=== PATIENT | male | born 1980 | race Caucasian/White ===

== ENCOUNTER 2020-11-30 15:39 | Emergency (ER) | payer MEDICARE, BC, SELFPAY ==
[2020-11-30 15:54] VITALS: BP 151/80; PULSE 92; RESP 20; TEMP 36.3; O2SAT 97
--- NOTE | 2020-11-30 16:02 | ED.MALEGU ---
HPI - Male Genitourinary General Chief complaint: Skin/Abscess/Foreign Body Stated complaint: INFECTION Time Seen by Provider: 11/30/20 16:10 Source: patient and RN notes reviewed Mode of arrival: ambulatory Limitations: no limitations History of Present Illness HPI Narrative: 40-year-old male with history of morbid obesity presents with concern for possible ingrown hair, burning, itchy rash in his groin, including his testicles and penis, yellow penile discharge. He denies any sexual activity, does not have any concern for STDs. He denies abdominal pain, back pain, fever, testicle swelling or pain. MD Complaint: penile discharge Related Data Home Medications Medication Instructions Recorded Confirmed citalopram [Celexa] mg 11/30/20 diazepam [Valium] 11/30/20 hydroxyzine HCl 11/30/20 lamotrigine [Lamictal] 11/30/20 vilazodone [Viibryd] mg 11/30/20 ziprasidone HCl [Geodon] 11/30/20 Allergies Allergy/AdvReac Type Severity Reaction Status Date / Time No Known Allergies Allergy Verified 11/30/20 15:55 Review of Systems Review of Systems: Narrative: CONSTITUTIONAL: Denies malaise, chills, sweats, or fever. CARDIOVASCULAR: Denies chest pain, palpitations, or edema. RESPIRATORY: Denies cough or dyspnea. GASTROINTESTINAL: Denies abdominal pain, nausea, vomiting, diarrhea GENITOURINARY: Denies frequency, urgency, dysuria or hematuria. Reports yellow penile discharge SKIN: Reports itchy, burning rash in the groin, testicles, penis. Reports painful possible ingrown hair in the groin MUSCULOSKELETAL: Denies back pain or myalgia. All systems reviewed & are unremarkable except as noted in HPI and below PMFSH Social History Social History Gender identity (if verbalized by the patient): Male Comments At time of signature, agree with nursing past medical, surgical, social and family history. There is no relevant family history pertinent to the presenting complaint Exam Narrative: Exam Narrative: GENERAL: Well-appearing, well-nourished, and in no acute distress. HEAD: Normocephalic. EYES: PERRLA, conjunctivae clear. NECK: Supple. No lymphadenopathy CHEST: Clear to auscultation. No respiratory distress. HEART: Regular rate and rhythm. ABDOMEN: Obese, normal active bowel sounds SKIN: Warm, dry. Area of erythema, induration, tenderness with central scab and purulent drainage noted to the left groin, no fluctuation approximately 2 cm x 3 cm. Excoriated erythematous rash generalized to the groin, scrotum, penis NEURO: Alert and oriented x3. PSYCH: Normal mood and affect : Male General Exam: Yes erythema (Excoriation) Penis: Yes erythematous Scrotum: erythematous (Excoriation, rash) bilateral Course Course Emergency Course: Patient is aware of diagnosis, understands and agrees to treatment plan. Anticipatory guidance given. Patient agrees to follow-up as directed and is aware of reasons to seek care at the emergency department. Portions of this record may have been created with voice recognition software Vital Signs Vital signs: Vital Signs Temperature 97.4 F L 11/30/20 15:54 Pulse Rate 92 11/30/20 15:54 Respiratory Rate 20 11/30/20 15:54 Blood Pressure 151/80 H 11/30/20 15:54 Pulse Oximetry 97 11/30/20 15:54 Temperature 97.4 F L 11/30/20 15:54 Pulse Rate 92 11/30/20 15:54 Respiratory Rate 20 11/30/20 15:54 Blood Pressure 151/80 H 11/30/20 15:54 Pulse Oximetry 97 11/30/20 15:54 Reviewed. MDM - Male Genitourinary MDM Narrative Medical decision making narrative: Exam findings show no acute concerns or changes; patient is non-toxic appearing and is in no distress. Patient is appropriate for outpatient treatment and follow-up. Critical Care Time Critical Care Time Critical Care Time: No Discharge Plan Discharge Clinical Impression: Skin yeast infection Abscess of skin or subcutaneous tissue Qualifiers: Site of cutaneous abscess: trunk Site of cutaneous abs
== END 2020-11-30 16:41 | disposition home or self-care (01) ==
PROVIDERS: Emergency Provider Nurse Practitioner
DX: B37.2 Candidiasis of skin and nail (principal); L02.214 Cutaneous abscess of groin
CPT/HCPCS: 87070; 87077; 87147; 87186; 87205; 99213; G0463

== ENCOUNTER → 2021-07-26 09:16 | Outpatient (CLI) | payer MEDICARE, BC, SELFPAY ==
--- NOTE | ~2021-07-26 | XR_ITS ---
EXAMINATION: XR abdomen/kub 1V INDICATION: Constipation, unspecified TECHNIQUE: Supine views of the abdomen were obtained on 2 radiographs. COMPARISON: None FINDINGS: A moderate volume of colonic stool is present. No dilated loops of bowel are present. There is mild osteoarthritis of the hips. IMPRESSION: 1. Moderate volume of colonic stool. Reviewed, dictated and finalized at location A.
== END ==
PROVIDERS: PCP Family Medicine; Visit Provider Nurse Practitioner Family
DX: K59.00 Constipation, unspecified (principal)
CPT/HCPCS: 74018

== ENCOUNTER 2023-03-26 12:15 | Outpatient (CLI) | payer MEDICARE, BC, SELFPAY ==
[2023-03-26 12:56] LABS: Basophils Absolute Auto 0.1 K/mm3 (0.0-0.1); Basophils Percent Auto 0.8 % (0.2-1.2); Eosinophils Absolute Auto 0.5 K/mm3 (0-0.3); Eosinophils Percent Auto 3.6 % (0-4.4); Hematocrit 47.6 % (42.0-52.0); Hemoglobin 15.2 g/dL (14.0-18.0); Immature Granulocyte Absolute 0.04 K/mm3 (0.00-0.031); Immature Granulocyte Percent A 0.3 % (0-0.5); Lymphocytes Absolute Auto 2.36 K/mm3 (0.9-3.2); Lymphocytes Percent Auto 17.1 % (18.3-44.2); Mean Corpuscular HGB Conc 31.9 g/dl (32-36); Mean Corpuscular Hemoglobin 29.5 pg (26-34); Mean Corpuscular Volume 92.2 fl (80-100); Mean Platelet Volume 9.2 fl (7.4-10.4); Monocytes Absolute Auto 1.1 K/mm3 (0.1-0.6); Monocytes Percent Auto 7.7 % (2.6-8.5); Neutrophils Absolute Auto 9.7 K/mm3 (1.3-6.7); Neutrophils Percent Auto 70.5 % (45.5-73.1); Platelet Count Result 288 k/mm3 (150-375); Red Blood Count 5.16 M/mm3 (4.6-6.20); Red Cell Distribution Width 13.4 % (11.5-14.5); White Blood Count 13.8 K/mm3 (4.5-10.0)
[2023-03-26 13:20] LABS: Alanine Aminotransferase 26 U/L (6-50); Albumin Level 4.7 g/dL (3.5-5.1); Alkaline Phosphatase 109 U/L (38-126); Anion Gap 10 mmol/L (8-16); Aspartate Amino Transferase 20 U/L (17-59); Bilirubin,Total 0.5 mg/dL (0.2-1.3); Blood Urea Nitrogen 21 mg/dL (9-20); Calcium 9.6 mg/dL (8.4-10.2); Carbon Dioxide 26 mmol/L (22-30); Chloride 103 mmol/L (98-107); Estimated Glomerular Filt Rate > 60; Glucose 135 mg/dL (65-110); Potassium 4.5 mmol/L (3.4-5.0); Sodium 139 mmol/L (137-145)
[2023-03-26 13:54] LABS: HIV 1/2 Ab P24 Ag Result Negative (Negative)
[2023-03-26 17:02] LABS: Hepatitis C Virus Antibody Negative (Negative)
[2023-03-28 09:56] LABS: HAV RESULT Negative (Negative)
[2023-03-28 16:49] LABS: NIL 0.01 IU/mL; Quantiferon TB Plus, 1T NEGATIVE (NEGATIVE)
== END 2023-03-26 12:16 | disposition home or self-care (01) ==
LOC: ANHLAB 12:26
PROVIDERS: PCP Family Medicine
DX: L40.0 Psoriasis vulgaris (principal); Z11.4 Encounter for screening for human immunodeficiency virus [HIV]; Z79.899 Other long term (current) drug therapy
CPT/HCPCS: 36415; 80053; 85025; 86480; 86703; 86709; 86803; G0432

== ENCOUNTER 2023-06-09 10:02 | Outpatient (CLI) | payer MEDICARE, BC, SELFPAY ==
[2023-06-09 10:36] LABS: Basophils Absolute Auto 0.2 K/mm3 (0.0-0.1); Basophils Percent Auto 1.3 % (0.2-1.2); Eosinophils Absolute Auto 0.7 K/mm3 (0-0.3); Eosinophils Percent Auto 5.5 % (0-4.4); Hematocrit 44.1 % (42.0-52.0); Hemoglobin 14.5 g/dL (14.0-18.0); Immature Granulocyte Absolute 0.05 K/mm3 (0.00-0.031); Immature Granulocyte Percent A 0.4 % (0-0.5); Lymphocytes Absolute Auto 3.77 K/mm3 (0.9-3.2); Lymphocytes Percent Auto 30.1 % (18.3-44.2); Mean Corpuscular HGB Conc 32.9 g/dl (32-36); Mean Corpuscular Hemoglobin 29.9 pg (26-34); Mean Corpuscular Volume 90.9 fl (80-100); Mean Platelet Volume 8.8 fl (7.4-10.4); Monocytes Percent Auto 7.9 % (2.6-8.5); Neutrophils Absolute Auto 6.9 K/mm3 (1.3-6.7); Neutrophils Percent Auto 54.8 % (45.5-73.1); Platelet Count Result 279 k/mm3 (150-375); Red Blood Count 4.85 M/mm3 (4.6-6.20); Red Cell Distribution Width 14.5 % (11.5-14.5); White Blood Count 12.5 K/mm3 (4.5-10.0)
== END 2023-06-09 10:03 | disposition home or self-care (01) ==
PROVIDERS: PCP Family Medicine; Visit Provider Nurse Practitioner Family
DX: B37.0 Candidal stomatitis (principal)
CPT/HCPCS: 36415; 85025

== ENCOUNTER 2023-07-02 08:58 | Outpatient (CLI) | payer MEDICARE, BC, SELFPAY ==
[2023-07-02 09:46] LABS: Basophils Absolute Auto 0.1 K/mm3 (0.0-0.1); Basophils Percent Auto 0.7 % (0.2-1.2); Eosinophils Absolute Auto 0.8 K/mm3 (0-0.3); Eosinophils Percent Auto 6.1 % (0-4.4); Hematocrit 44.3 % (42.0-52.0); Hemoglobin 14.3 g/dL (14.0-18.0); Immature Granulocyte Absolute 0.05 K/mm3 (0.00-0.031); Immature Granulocyte Percent A 0.4 % (0-0.5); Lymphocytes Absolute Auto 3.95 K/mm3 (0.9-3.2); Lymphocytes Percent Auto 29.4 % (18.3-44.2); Mean Corpuscular HGB Conc 32.3 g/dl (32-36); Mean Corpuscular Hemoglobin 29.6 pg (26-34); Mean Corpuscular Volume 91.7 fl (80-100); Mean Platelet Volume 8.9 fl (7.4-10.4); Monocytes Percent Auto 7.3 % (2.6-8.5); Neutrophils Absolute Auto 7.5 K/mm3 (1.3-6.7); Neutrophils Percent Auto 56.1 % (45.5-73.1); Platelet Count Result 245 k/mm3 (150-375); Red Blood Count 4.83 M/mm3 (4.6-6.20); Red Cell Distribution Width 13.8 % (11.5-14.5); White Blood Count 13.4 K/mm3 (4.5-10.0)
== END 2023-07-02 08:59 | disposition home or self-care (01) ==
LOC: ANHLAB 08:59
PROVIDERS: PCP Family Medicine; Visit Provider Physician Assistant Medical
DX: D72.9 Disorder of white blood cells, unspecified (principal)
CPT/HCPCS: 36415; 85025

== ENCOUNTER 2023-08-27 10:50 | Outpatient (CLI) | payer MEDICARE, BC, SELFPAY ==
[2023-08-27 11:04] LABS: Basophils Absolute Auto 0.1 K/mm3 (0.0-0.1); Basophils Percent Auto 0.9 % (0.2-1.2); Eosinophils Absolute Auto 1.8 K/mm3 (0-0.3); Eosinophils Percent Auto 12.9 % (0-4.4); Hematocrit 46.6 % (42.0-52.0); Hemoglobin 15.4 g/dL (14.0-18.0); Immature Granulocyte Absolute 0.06 K/mm3 (0.00-0.031); Immature Granulocyte Percent A 0.4 % (0-0.5); Lymphocytes Absolute Auto 3.24 K/mm3 (0.9-3.2); Lymphocytes Percent Auto 23.4 % (18.3-44.2); Mean Corpuscular Hemoglobin 29.5 pg (26-34); Mean Corpuscular Volume 89.3 fl (80-100); Mean Platelet Volume 8.9 fl (7.4-10.4); Monocytes Absolute Auto 0.9 K/mm3 (0.1-0.6); Monocytes Percent Auto 6.4 % (2.6-8.5); Neutrophils Absolute Auto 7.7 K/mm3 (1.3-6.7); Platelet Count Result 246 k/mm3 (150-375); Red Blood Count 5.22 M/mm3 (4.6-6.20); Red Cell Distribution Width 13.9 % (11.5-14.5); White Blood Count 13.8 K/mm3 (4.5-10.0)
[2023-08-27 12:54] LABS: Alanine Aminotransferase 24 U/L (6-50); Albumin Level 4.4 g/dL (3.5-5.1); Alkaline Phosphatase 115 U/L (38-126); Anion Gap 12 mmol/L (8-16); Aspartate Amino Transferase 17 U/L (17-59); Bilirubin,Total 0.5 mg/dL (0.2-1.3); Blood Urea Nitrogen 17 mg/dL (9-20); CRP 0.8 mg/dL (<1.0); Calcium 9.2 mg/dL (8.4-10.2); Carbon Dioxide 22 mmol/L (22-30); Chloride 103 mmol/L (98-107); Estimated Glomerular Filt Rate > 60; Glucose 144 mg/dL (65-110); Sodium 137 mmol/L (137-145)
[2023-08-27 13:03] LABS: Immunoglobulin G 471 mg/dL (700-1600); Immunoglobulin M 39 mg/dL (40-230)
[2023-08-27 13:24] LABS: Erythrocyte Sedimentation Rate 15 mm/hr (0-20)
[2023-08-27 20:43] LABS: Immunoglobulin A 298 mg/dL (70-400)
== END 2023-08-27 10:51 | disposition home or self-care (01) ==
PROVIDERS: PCP Family Medicine; Visit Provider Internal Medicine Hematology & Oncology
DX: D72.829 Elevated white blood cell count, unspecified (principal); D64.9 Anemia, unspecified
CPT/HCPCS: 36415; 80053; 82784; 85025; 85652; 86140; 88184; 88185

== ENCOUNTER 2023-09-06 20:55 | Emergency (ER) | payer MEDICARE, BC, SELFPAY ==
--- NOTE | ~2023-09-06 | XR_ITS ---
EXAMINATION: XR knee LT min 4V DATE: 09/06/2023 22:07 INDICATION: Left knee pain and bruising post fall down stairs TECHNIQUE: Anteroposterior, 2 oblique and crosstable lateral views of the left knee were obtained COMPARISON: None. FINDINGS: Alignment is normal. No fracture. At least mild tricompartmental osteoarthritis with moderate size m arginal osteophytes in all 3 compartments. No significant joint space narrowing although this can be underestimated on nonweightbearing imaging. No joint effusion/layering lipohemarthrosis. Anterior pre dominant soft tissue swelling at the left knee. IMPRESSION: 1. No fracture or joint effusion. 2. At least mild tricompartmental osteoarthritis of the left knee. Reviewed, dictated and finalized at location A.
--- NOTE | ~2023-09-06 | CT_ITS ---
EXAMINATION: CT brain wo con DATE: 09/06/2023 22:22 INDICATION: Head injury. TECHNIQUE: Computed tomography (CT) of the head was performed without intravenous contrast. The mA wa s adjusted according to patient size. Iterative reconstruction technique was employed. The dose-lengt h product was 681.00 mGy-cm. COMPARISON: None FINDINGS: There is no intracranial hemorrhage, acute infarction, or abnormal intracranial mass lesion . The ventricles are normal in size. There is a frontal scalp hematoma. There is mild mucosal thicken ing in the ethmoid sinuses. The orbits are normal. There is a left mastoid effusion. IMPRESSION: 1. Normal brain. Reviewed, dictated and finalized at location E. IMPRESSION: 1. Normal brain.
--- NOTE | ~2023-09-06 | CT_ITS ---
EXAMINATION: CT facial & cervical spine wo DATE: 09/06/2023 22:23 INDICATION: Head injury. TECHNIQUE: Computed tomography (CT) of the maxillofacial region and cervical spine was performed with out intravenous contrast. Automated exposure control and iterative reconstruction technique were empl oyed. The dose-length product was 594.07 mGy-cm. COMPARISON: None FINDINGS: MAXILLOFACIAL CT: There is a left frontal scalp hematoma. The orbits are normal. There is soft tissue gas in the left f dc. There is rightward deviation of the nasal septum. There is mild mucosal thickening in the ethmoi d sinuses. There is a left mastoid effusion. CERVICAL SPINE CT: There is 4 degrees levocurvature of cervicothoracic spine. Vertebral body heights are normal. Interve rtebral disc heights are normal. The following disc levels are specifically discussed: C2-C3: There is mild right and moderate left uncovertebral joint osteoarthritis. There is no facet linda int osteoarthritis. There is mild bilateral neural foraminal stenosis. There is no central canal sten osis. C3-C4: There is mild right and severe left uncovertebral joint osteoarthritis. There is mild right an d moderate left facet joint osteoarthritis. There is mild left neural foraminal stenosis. There is no central canal stenosis. C4-C5: There is mild right and severe left uncovertebral joint osteoarthritis. There is moderate left facet joint osteoarthritis. There is mild left neural foraminal stenosis. There is mild central yas l stenosis. C5-C6: There is moderate right and mild left uncovertebral joint osteoarthritis. There is no facet linda int osteoarthritis. There is mild right neural foraminal stenosis. There is mild central canal stenos is. C6-C7: There is mild bilateral uncovertebral joint osteoarthritis. There is no facet joint osteoarthr itis. There is mild right neural foraminal stenosis. There is no central canal stenosis. C7-T1: There is no uncovertebral joint osteoarthritis. There is moderate right and mild left facet linda int osteoarthritis. There is no neural foraminal stenosis. There is no central canal stenosis. IMPRESSION: 1. No fracture. 2. Mild cervical spondylosis. Reviewed, dictated and finalized at location E.
[2023-09-06 20:59] VITALS: BP 149/64; PULSE 87; RESP 14; TEMP 36.7; O2SAT 96
[2023-09-06 21:27] VITALS: BP 148/97; PULSE 89; RESP 19; O2SAT 95
[2023-09-06] MEDS: TETANUS,DIPHTHERIA,AC PERTUSSIS ADULT (0.5 ML) BOOSTRIX IM (21:36)
--- NOTE | 2023-09-06 21:53 | ED.FALL ---
HPI - Fall General Chief Complaint: Fall Stated Complaint: Fall, head injury Time Seen by Provider: 09/06/23 21:23 Source: patient Mode of arrival: ambulatory Limitations: no limitations History of Present Illness HPI Narrative: Patient is a 42 y/o male who presents to the ED with c/o fall down stairs. Patient reports he slipped and fell down 4-5 stairs prior to arrival. He did hit his head and sustained contusions to his forehead as well as a lacerations to his left eyelid and periorbital region. He does believe that he lost consciousness for a brief second. He reported having a brief moment of double vision after the incident, but states this has since resolved. Denies any further vision changes. He denies feeling dizzy or lightheaded currently. Complains of pain to his head, neck, left knee. He has been ambulatory since the fall. C-collar placed upon arrival. Tetanus status unknown. Denies abdominal pain, chest pain, back pain, nausea, vomiting, difficulty breathing. Related Data Home Medications Medication Instructions Recorded Confirmed albuterol sulfate 90 mcg/actuation 2 inh inhalation Q4H PRN 07/20/21 06/18/23 aerosol inhaler diazepam 10 mg tablet (Valium) 10 mg PO BID 07/20/21 06/18/23 lamotrigine 100 mg tablet 100 mg PO TID 07/20/21 06/18/23 (Lamictal) mometasone 220 mcg/actuation(120 1 inh inhalation BID 07/20/21 06/18/23 doses)breath activated powder inhaler (Asmanex Twisthaler) olopatadine 0.6 % nasal spray 2 spray intranasal BID 07/20/21 06/18/23 ziprasidone HCl 40 mg capsule 40 mg PO QPM 07/20/21 06/18/23 (Geodon) bupropion HCl 200 mg tablet,12 hr 200 mg PO BID 06/18/23 06/18/23 sustained-release venlafaxine 75 mg capsule,extended See Rx Instructions PO DAILY 06/18/23 06/18/23 release 24 hr (Effexor XR) Allergies Allergy/AdvReac Type Severity Reaction Status Date / Time No Known Allergies Allergy Verified 06/18/23 08:51 Review of Systems Review of Systems: CONSTITUTIONAL: Denies fever, chills, or sweats. EYES: See HPI. CARDIOVASCULAR: Denies chest pain. RESPIRATORY: Denies dyspnea. GASTROINTESTINAL: Denies abdominal pain, nausea, vomiting. MUSCULOSKELETAL: See HPI. NEUROLOGIC: See HPI. All systems reviewed & are unremarkable except as noted in HPI and below PMFSH Past Medical History Medical History Allergies Anxiety Asthma BMI 37.0-37.9, adult BMI 40.0-44.9, adult BMI 45.0-49.9, adult GERD (gastroesophageal reflux disease) Morbid obesity Family History Family History Grandparent Heart problem Maternal Father No problems noted. Mother Diabetes mellitus Parkinson's disease Obesity Kidney failure Sibling Lupus Other Alcoholism Depression Hypertension Social History Social History Smoking status: Never smoker Second hand tobacco smoke exposure: Yes Alcohol intake: never Substance use: never Substance use type: does not use Lack of Transportation: No Lack of Food: Never True Current Housing: I Have Housing Concerned About Future Housing: No Difficulty Paying Gas/Electric Bills: No Difficulty Paying for Meds: No Currently Unemployed: No Education: High School Diploma/GED Difficulty w/ Childcare or Family Care: No Living arrangements: with family 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 HEAD: Normocephalic. Contusion to right forehead with small overlying abrasion. EYES: Diffuse swelling and ecchymosis to left periorbital region with eyelids nearly swollen shut. Very small 0.25 cm laceration to left upper eyelid with m
--- NOTE | 2023-09-06 22:15 | PC.NURSE ---
Pt in x/ray/CT at this time.
[2023-09-06] MEDS: MORPHINE SULFATE (*CRX) 4 MG/ML INJ IV PUSH (22:27)
[2023-09-06] MEDS: LIDOCAINE HCL 1% LOCAL INJ 10 ML VIAL 5 ML INFILTRATE (22:27)
[2023-09-06] MEDS: ONDANSETRON INJ 4 MG/2 ML VIAL IV PUSH (22:27)
[2023-09-06 23:32] VITALS: BP 126/75; PULSE 75; RESP 16; O2SAT 97
[2023-09-07] MEDS: ACETAMINOPHEN 500 MG TABLET 1000 MG PO
[2023-09-07] MEDS: CYCLOBENZAPRINE HCL 5 MG TABLET PO
[2023-09-07 00:20] VITALS: BP 127/65; PULSE 79; RESP 16; O2SAT 100
== END 2023-09-07 00:23 | disposition home or self-care (01) ==
PROVIDERS: Emergency Provider Physician Assistant; PCP Family Medicine
DX: S01.112A Laceration without foreign body of left eyelid and periocular area, initial encounter (principal); S16.1XXA Strain of muscle, fascia and tendon at neck level, initial encounter; S50.02XA Contusion of left elbow, initial encounter; Z23 Encounter for immunization; F41.9 Anxiety disorder, unspecified; J45.909 Unspecified asthma, uncomplicated; K21.9 Gastro-esophageal reflux disease without esophagitis; E66.01 Morbid (severe) obesity due to excess calories; Z68.42 Body mass index [BMI] 45.0-49.9, adult; M17.12 Unilateral primary osteoarthritis, left knee; M47.812 Spondylosis without myelopathy or radiculopathy, cervical region; W10.9XXA Fall (on) (from) unspecified stairs and steps, initial encounter
CPT/HCPCS: 12013; 70450; 70486; 72125; 73564; 90471; 90715; 96374; 96375; 99284; A9270; J2270; J2405

== ENCOUNTER 2023-09-24 12:08 | Outpatient (CLI) | payer MEDICARE, BC, SELFPAY | END 2023-09-24 12:09 | disposition home or self-care (01) | LOC: ANHLAB 12:10 | PROVIDERS: PCP Family Medicine; Visit Provider Internal Medicine Hematology & Oncology | DX: D72.119 Hypereosinophilic syndrome [HES], unspecified (principal) | CPT/HCPCS: 36415; 82607; 83520; 88271; 88275 ==

== ENCOUNTER 2023-09-27 08:52 | Emergency (ER) | payer MEDICARE, BC, SELFPAY ==
[2023-09-27 09:14] VITALS: PULSE 99; RESP 18; TEMP 37.5; O2SAT 98
[2023-09-27 09:40] VITALS: BP 154/69
--- NOTE | 2023-09-27 10:32 | ED.SKABFB ---
HPI - Skin/Abscess/Foreign Bdy General Chief complaint: Skin/Abscess/Foreign Body Stated complaint: rash Time Seen by Provider: 09/27/23 09:16 History of Present Illness HPI narrative: Patient is a 42-year-old male presenting with a rash. Patient states that for the last 3 to 4 days he has had a diffuse itchy rash. He saw his cloth cutting inspector earlier this week who started him on cetirizine. He states that he has been taking this daily without relief. States he continues to have diffuse itchy rash especially on his torso and inner thighs. He denies any new lotion, soaps, shampoos, detergents. He denies fevers, shortness of breath, oral swelling, difficulty swallowing, nausea or vomiting. No further complaints. Related Data Home Medications Medication Instructions Recorded Confirmed albuterol sulfate 90 mcg/actuation 2 inh inhalation Q4H PRN 07/20/21 09/22/23 aerosol inhaler diazepam 10 mg tablet (Valium) 10 mg PO BID 07/20/21 09/22/23 lamotrigine 100 mg tablet 100 mg PO TID 07/20/21 09/22/23 (Lamictal) mometasone 220 mcg/actuation(120 1 inh inhalation BID 07/20/21 09/22/23 doses)breath activated powder inhaler (Asmanex Twisthaler) olopatadine 0.6 % nasal spray 2 spray intranasal BID 07/20/21 09/22/23 ziprasidone HCl 40 mg capsule 40 mg PO QPM 07/20/21 09/22/23 (Geodon) bupropion HCl 200 mg tablet,12 hr 200 mg PO BID 06/18/23 09/22/23 sustained-release venlafaxine 75 mg capsule,extended See Rx Instructions PO DAILY 06/18/23 09/22/23 release 24 hr (Effexor XR) prazosin 5 mg capsule 5 mg PO QHS 09/12/23 09/22/23 Allergies Allergy/AdvReac Type Severity Reaction Status Date / Time No Known Allergies Allergy Verified 09/27/23 09:22 Review of Systems Review of Systems: All systems reviewed & are unremarkable except as noted in HPI and below PMFSH Past Medical History Medical History Allergies Anxiety Asthma BMI 37.0-37.9, adult BMI 40.0-44.9, adult BMI 45.0-49.9, adult Candidiasis Chronic fatigue Facial laceration GERD (gastroesophageal reflux disease) Head trauma Leukocytosis Morbid obesity Psoriasis Family History Family History Grandparent Heart problem Maternal Father No problems noted. Mother Diabetes mellitus Parkinson's disease Obesity Kidney failure Sibling Lupus Other Alcoholism Depression Hypertension Social History Social History Smoking status: Never smoker Second hand tobacco smoke exposure: Yes Alcohol intake: never Substance use: never Substance use type: does not use Lack of Transportation: No Lack of Food: Never True Current Housing: I Have Housing Concerned About Future Housing: No Difficulty Paying Gas/Electric Bills: No Difficulty Paying for Meds: No Currently Unemployed: No Education: High School Diploma/GED Difficulty w/ Childcare or Family Care: No Living arrangements: with family 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 EYES: PERRLA and EOMI. ENT: Grossly unremarkable; no intraoral swelling, posterior pharynx unremarkable NECK: Supple. CHEST: Clear to auscultation. No respiratory distress. HEART: Regular rate and rhythm ABDOMEN: Soft, nontender, nondistended EXTREMITIES: Normal range of motion. No edema. SKIN: Warm, dry; diffuse urticaria, no evidence of cellulitis, no abscesses appreciated NEURO: Alert and oriented x3. PSYCH: Normal mood and affect. Course Vital Signs Vital signs: Vital Signs Temperature 99.5 F 09/27/23 09:14 Pulse Rate 99 09/27/23 09:14 R
[2023-09-27 10:57] VITALS: BP 150/65; PULSE 90; RESP 18; O2SAT 98
== END 2023-09-27 10:58 | disposition home or self-care (01) ==
PROVIDERS: Emergency Provider Emergency Medicine; PCP Family Medicine
DX: L50.9 Urticaria, unspecified (principal); J45.909 Unspecified asthma, uncomplicated; K21.9 Gastro-esophageal reflux disease without esophagitis; F41.9 Anxiety disorder, unspecified; E66.01 Morbid (severe) obesity due to excess calories; Z68.42 Body mass index [BMI] 45.0-49.9, adult; L40.8 Other psoriasis
CPT/HCPCS: 99283

== ENCOUNTER 2024-04-08 09:56 | Outpatient (CLI) | payer MEDICARE, BC, SELFPAY ==
[2024-04-08 13:31] LABS: Alanine Aminotransferase 29 U/L (6-50); Albumin Level 4.3 g/dL (3.5-5.1); Alkaline Phosphatase 110 U/L (38-126); Anion Gap 10 mmol/L (4-12); Aspartate Amino Transferase 24 U/L (17-59); Bilirubin,Total 0.4 mg/dL (0.2-1.3); Blood Urea Nitrogen 18 mg/dL (9-20); Calcium 9.2 mg/dL (8.4-10.2); Carbon Dioxide 23 mmol/L (22-30); Chloride 104 mmol/L (98-107); Cholesterol 111 mg/dL (0-200); Estimated Glomerular Filt Rate > 60; Glucose 187 mg/dL (65-110); HDL Direct 33 mg/dL; Potassium 3.7 mmol/L (3.4-5.0); Sodium 137 mmol/L (137-145); Triglycerides 219 mg/dL (<150)
[2024-04-08 13:52] LABS: LDL Cholesterol Direct 57 mg/dL
[2024-04-08 18:18] LABS: MALB Creatinine Ratio < 6.1 mg/g (0-30); Microalbumin Urine Random < 6.0 mg/L (0-16.7)
== END 2024-04-08 09:57 | disposition home or self-care (01) ==
PROVIDERS: PCP Family Medicine; Visit Provider Physician Assistant Medical
DX: Z12.5 Encounter for screening for malignant neoplasm of prostate (principal); D84.9 Immunodeficiency, unspecified; E03.9 Hypothyroidism, unspecified; E11.65 Type 2 diabetes mellitus with hyperglycemia; E78.5 Hyperlipidemia, unspecified
CPT/HCPCS: 36415; 80053; 80061; 82043

== ENCOUNTER 2024-06-15 11:48 | Outpatient (CLI) | payer MEDICARE, BC, SELFPAY ==
[2024-06-15 12:23] LABS: Basophils Absolute Auto 0.1 K/mm3 (0.0-0.1); Basophils Percent Auto 0.8 % (0.2-1.2); Eosinophils Absolute Auto 0.5 K/mm3 (0-0.3); Eosinophils Percent Auto 3.9 % (0-4.4); Hematocrit 45.7 % (42.0-52.0); Hemoglobin 14.8 g/dL (14.0-18.0); Immature Granulocyte Absolute 0.05 K/mm3 (0.00-0.031); Immature Granulocyte Percent A 0.4 % (0-0.5); Lymphocytes Absolute Auto 3.01 K/mm3 (0.9-3.2); Lymphocytes Percent Auto 26.1 % (18.3-44.2); Mean Corpuscular HGB Conc 32.4 g/dl (32-36); Mean Corpuscular Hemoglobin 29.9 pg (26-34); Mean Corpuscular Volume 92.3 fl (80-100); Mean Platelet Volume 9.2 fl (7.4-10.4); Monocytes Absolute Auto 0.9 K/mm3 (0.1-0.6); Monocytes Percent Auto 7.7 % (2.6-8.5); Neutrophils Percent Auto 61.1 % (45.5-73.1); Platelet Count Result 224 k/mm3 (150-375); Red Blood Count 4.95 M/mm3 (4.6-6.20); Red Cell Distribution Width 13.8 % (11.5-14.5); White Blood Count 11.5 K/mm3 (4.5-10.0)
[2024-06-15 12:38] LABS: Alanine Aminotransferase 23 U/L (6-50); Albumin Level 4.4 g/dL (3.5-5.1); Alkaline Phosphatase 105 U/L (38-126); Anion Gap 12 mmol/L (4-12); Aspartate Amino Transferase 26 U/L (17-59); Bilirubin,Total 0.3 mg/dL (0.2-1.3); Blood Urea Nitrogen 15 mg/dL (9-20); Calcium 9.4 mg/dL (8.4-10.2); Carbon Dioxide 26 mmol/L (22-30); Chloride 98 mmol/L (98-107); Estimated Glomerular Filt Rate > 60; Glucose 180 mg/dL (65-110); Potassium 4.2 mmol/L (3.4-5.0); Sodium 136 mmol/L (137-145)
[2024-06-17 12:29] LABS: NIL 0.01 IU/mL; Quantiferon TB Plus, 1T NEGATIVE (NEGATIVE)
== END 2024-06-15 11:49 | disposition home or self-care (01) ==
PROVIDERS: PCP Family Medicine
DX: L40.0 Psoriasis vulgaris (principal); Z79.899 Other long term (current) drug therapy
CPT/HCPCS: 36415; 80053; 85025; 86480

== ENCOUNTER 2024-08-10 10:13 | Outpatient (CLI) | payer MEDICARE, BC, SELFPAY ==
[2024-08-10 11:26] LABS: Free T4 Free Thyroxine 0.83 ng/mL (0.78-2.19)
== END 2024-08-10 10:14 | disposition home or self-care (01) ==
LOC: ANHLAB 10:17
PROVIDERS: PCP Family Medicine; Visit Provider Family Medicine
DX: E03.9 Hypothyroidism, unspecified (principal)
CPT/HCPCS: 36415; 84439; 84443

== ENCOUNTER 2024-08-17 10:19 | Outpatient (RCR) | payer MEDICARE, BC, SELFPAY | END 2024-11-08 09:29 | disposition home or self-care (01) | LOC: ANHDMC 10:19 | PROVIDERS: PCP Family Medicine; Visit Provider Family Medicine | DX: E11.65 Type 2 diabetes mellitus with hyperglycemia (principal); Z71.89 Other specified counseling | CPT/HCPCS: G0108 ==

== ENCOUNTER 2025-06-21 13:16 | Outpatient (CLI) | payer MEDICARE, BC, MEDICAID, SELFPAY ==
--- OUTSIDE RECORDS SUMMARY | 2025-06-21 13:32 | XMS_ITS | Clinical Summary ---
Author Organization [facility] Address [address] [place] [address] Care Team Providers Care Water Well Driller Name Role Phone Mahamed Milian MD Primary Care Provider [phone] Allergies No known active allergies Medications lamoTRIgine (LaMICtal) 150 mg tablet Take 150 mg by mouth daily. Active levothyroxine 25 mcg tablet Take 25 mcg by mouth daily in the morning. Active rosuvastatin (CRESTOR) 20 mg tablet Take 20 mg by mouth daily. Active venlafaxine (EFFEXOR XR) 150 mg Extended Release 24 hour capsule Take 150 mg by mouth daily. Active buPROPion HCL (WELLBUTRIN SR) 200 mg Sustained Release 12 hour tablet Take 200 mg by mouth 2 times daily. Active prazosin (MINIPRESS) 5 mg capsule Take 5 mg by mouth daily at bedtime. Active diazePAM (VALIUM) 10 mg tablet Take 10 mg by mouth every 8 hours as needed for Anxiety. Active ziprasidone (GEODON) 80 mg Capsule Take 80 mg by mouth 2 times daily with meals. Active dapagliflozin propanediol (Farxiga) 5 mg Tablet Take by mouth daily. Active Trulicity 4.5 mg/0.5 mL injection 3 Active hydrOXYzine HCL (ATARAX) 25 mg tabletIndicatio ns:Hypereosinop hilic syndrome, unspecified type Take 2 tablets by mouth every 8 hr as needed 90 Tablet 3 Active Ozempic 0.25 mg or 0.5 mg (2 mg/3 mL) Pen Injector Inject 1 mL by intramuscular injection every 7 days. 4 Active Jardiance 25 mg tablet Take 1 Tablet by mouth daily. 4 Active Skyrizi 150 mg/mL Pen Injector Inject 150 mg by subcutaneous injection one time only. Active Active Problems No known active problems Encounters Date Type Department Care Team Description 06/14/2025 Orders Only [facility] - [place] [address] [place] [address] Khang Alfaro MD 04/15/2025 Orders Only [facility] - [place] [address] [place] [address] Khang Alfaro MD from Last 3 Months Family History Medical History Relation Name Comments Diabetes Mother Heart Disease Mother Relation Name Status Comments Father Alive Mother Alive Sister 1 Alive Sister 2 Alive Social History Tobacco Use Types Packs/Day Years Used Date Smoking Tobacco: Never Smokeless Tobacco: Never Tobacco Cessation:Counseling Given: Not Answered Alcohol Use Standard Drinks/Week Comments Never 0 (1 standard drink = 0.6 oz pur e alcohol) Sex and Gender Information Value Date Recorded Sex Assigned at Not on file Legal Sex Male 2:06 PM CDT Gender Identity Not on file Sexual Orientation Not on file Last Filed Vital Signs Vital Sign Reading Time Taken Comments Blood Pressure 135/69 02/18/2025 10:32 AM CDT Pulse 85 02/18/2025 10:32 AM CDT Temperature 36.1 C (96.9 F) 02/18/2025 10:32 AM CDT Respiratory Rate 17 02/18/2025 10:3 2 AM CDT Oxygen Saturation 95% 02/18/2025 10: 32 AM CDT Inhaled Oxygen Concentration - - Weight 160.2 kg (353 lb 3.2 oz) 025 10:32 AM CDT Height 177.8 cm (5' 10) 08/27/2023 10: 05 AM CDT Body Mass Index 50.68 08/27/2023 10:05 AM CDT Plan of Treatment Upcoming Encounters Date Type Department Care Team (Late st Contact Info) Description 08/26/2025 10:30 AM CDT Office Visit [facility] - [place] [address] [place] [address] Khang Alfaro MD [address] [facility] [address] [place] [address] Health Maintenance Due Date Last Done Comments Pre-Diabetes and Diabetes Screening 1980 HPV VACCINES (1 - Male 3-dose series) 1995 DTAP/TDAP/TD VACCINES (1 - Tdap) 1999 HEPATITIS B VACCINES (1 of 3 - 19+ 3-dose series) 09/24 INFLUENZA VACCINE (#1) 2025 Procedures Procedure Name Priority Date/Time Associated Diagnosis Comments IGG Routine 06/10/2025 11:30 AM CDT IGG Routine 04/12/2025 1:55 PM CDT from Last 3 Months Results * IGG (06/10/2025 11:30 AM CDT) Only the most recent of2 resultswithin the time period is included. Blood Khang Alfaro MD CHEMISTRY ORDERABLES Final Resu lt from Last 3 Months Insurance MEDICARE PART A AND B [facility] Care Teams Water Well Driller Relationship Specialty Start Date End Date Mahamed Milian MD [address] [place] [address] PCP - General Family Practice 07/16/23
--- OUTSIDE RECORDS SUMMARY | 2025-06-21 13:32 | XMS_ITS | Clinical Summary ---
Author Organization [facility] Address [address] [place] [address] Care Team Providers Care Materials Handling Coordinator Name Role Phone Referral, Self Primary Care Provider Unavailabl e Allergies No known active allergies Medications No known medications Active Problems No known active problems Social History Tobacco Use Types Packs/Day Years Used Date Smoking Tobacco: Never Tobacco Cessation:Counseling Given: Not Answered Personal Safety Answer Date Recorded Getting School Help Needed Not on file 12/29 Sex and Gender Information Value Date Recorded Sex Assigned at Not on file Legal Sex Male 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 Gender Identity Not on file Sexual Orientation Not on file Obstetrics History Last Filed Vital Signs Vital Sign Reading Time Taken Comments Blood Pressure 138/76 02/23/2024 1:59 PM CDT Pulse 120 02/23/2024 1:59 PM CDT Temperature 36.7 C (98 F) 02/23/2024 1:59 PM CDT Respiratory Rate 18 02/23/2024 1:59 PM CDT Oxygen Saturation - - Inhaled Oxygen Concentration - - Weight 159.8 kg (352 lb 4.8 oz) 02/23/2024 1:59 PM CDT Height - - Body Mass Index - - Plan of Treatment Health Maintenance Due Date Last Done Comments Depression Screening 1980 Hepatitis C Screening 1980 Varicella Vaccines (1 of 2 - 13+ 2-dose series) 1993 Hepatitis B Screening 1998 Regular Well Visit/Exam 18-64 1998 HPV Vaccines (1 - 3-dose SCD M series) 2007 Covid-19 Vaccine (2023-2 5 season) 2024 04/05/2021, 03/15/2021 Influenza Vaccine (#1) 2025 08/24/2021 DTaP/Tdap/Td Vaccine (2 - Td or Tdap) 09/06/2033 09/06/2023 Pneumococcal vaccine <65 Aged Out No longer eligible based on patient's age to complete this topic Insurance MEDICARE [facility] MEDICARE Care Teams Materials Handling Coordinator Relationship Specialty Start Date End Date Referral, Self PCP - General 02/23/24
--- OUTSIDE RECORDS SUMMARY | 2025-06-21 13:32 | XMS_ITS | Referral Summary ---
Author Organization [facility] Address [facility] [place] [address] Care Team Providers Care Customer Specialist Name Role Phone Referral, Self Primary Care [...] on file Legal Sex Male 1:37 AM ASSESSMENT NURSE Gender Identity Not on file Sexual Orientation [...] Mass Index - - Plan of Treatment Not on file Insurance MEDICARE [facility] [employer] MEDICARE Care Teams Customer Specialist Relationship Specialty Start Date End Date Referral, Self PCP - General 02/23/24
[2025-06-21 14:24] LABS: Hematocrit 45.9 % (42.0-52.0); Hemoglobin 15.2 g/dL (14.0-18.0); Immature Granulocyte Percent A 0.3 % (0-0.5); Lymphocytes Absolute Auto 1.99 K/mm3 (0.9-3.2); Mean Corpuscular HGB Conc 33.1 g/dl (32-36); Mean Corpuscular Hemoglobin 29.9 pg (26-34); Mean Corpuscular Volume 90.4 fl (80-100); Nucleated Red Blood Cells Absolute Auto 0.000 K/mm3 (0.0-0.012); Nucleated Red Blood Cells Perc 0.0 % (0.0-0.2); Platelet Count Result 209 k/mm3 (150-375); Red Blood Count 5.08 M/mm3 (4.6-6.20); White Blood Count 7.0 K/mm3 (4.5-10.0)
[2025-06-21 14:39] LABS: Alanine Aminotransferase 27 U/L (6-50); Albumin Level 4.2 g/dL (3.5-5.1); Alkaline Phosphatase 96 U/L (38-126); Anion Gap 8 mmol/L (4-12); Aspartate Amino Transferase 28 U/L (17-59); Bilirubin,Total 0.3 mg/dL (0.2-1.3); Blood Urea Nitrogen 14 mg/dL (9-20); Calcium 9.2 mg/dL (8.4-10.2); Carbon Dioxide 26 mmol/L (22-30); Chloride 103 mmol/L (98-107); Estimated Glomerular Filt Rate > 60; Glucose 112 mg/dL (65-110); Potassium 3.9 mmol/L (3.4-5.0); Sodium 137 mmol/L (137-145); Total Protein 8.0 g/dL (6.3-8.2)
== END 2025-06-21 13:17 | disposition home or self-care (01) ==
PROVIDERS: PCP Family Medicine
DX: L40.0 Psoriasis vulgaris (principal); Z79.899 Other long term (current) drug therapy
CPT/HCPCS: 36415; 80053; 85025; 86480

== ENCOUNTER 2025-10-03 11:25 | Outpatient (CLI) | payer MEDICARE, BC, MEDICAID, SELFPAY ==
[2025-10-03 12:01] LABS: Hematocrit 45.8 % (42.0-52.0); Hemoglobin 14.9 g/dL (14.0-18.0); Immature Granulocyte Percent A 0.5 % (0-0.5); Lymphocytes Absolute Auto 3.06 K/mm3 (0.9-3.2); Mean Corpuscular HGB Conc 32.5 g/dl (32-36); Mean Corpuscular Hemoglobin 29.6 pg (26-34); Mean Corpuscular Volume 91.1 fl (80-100); Nucleated Red Blood Cells Absolute Auto 0.000 K/mm3 (0.0-0.012); Nucleated Red Blood Cells Perc 0.0 % (0.0-0.2); Platelet Count Result 263 k/mm3 (150-375); Red Blood Count 5.03 M/mm3 (4.6-6.20); White Blood Count 12.7 K/mm3 (4.5-10.0)
[2025-10-03 12:14] LABS: Anion Gap 9 mmol/L (4-12); Blood Urea Nitrogen 14 mg/dL (9-20); Calcium 9.0 mg/dL (8.4-10.2); Carbon Dioxide 26 mmol/L (22-30); Chloride 102 mmol/L (98-107); Estimated Glomerular Filt Rate > 60; Glucose 115 mg/dL (65-110); Potassium 4.4 mmol/L (3.4-5.0); Sodium 137 mmol/L (137-145)
--- OUTSIDE RECORDS SUMMARY | 2025-10-03 12:17 | XMS_ITS | Clinical Summary ---
Author Organization [facility] Address [address] [place] [address] Care Team Providers Care Manager Science Name Role Phone Mahamed Milian MD Primary Care Provider [phone] Allergies No known active allergies Medications lamoTRIgine [...] Encounters Date Type Department Care Team Description 09/30/2025 Orders Only [facility] Oncology and Hematology - Raji [address] [place] [address] Khang Alfaro MD 09/27/2025 External Device Data STL ABSTRACTION Provider, Abstract 09/20/2025 External Device Data STL ABSTRACTION Provider, Abstract 09/13/2025 External Device Data STL ABSTRACTION Provider, Abstract 08/26/2025 10:30 AM CDT Office Visit [facility] Oncology and Hematology - Raji [address] [place] [address] Khang Alfaro MD Immune deficiency disorder (Primary Dx) 08/17/2025 Orders Only [facility] Oncology and Hematology - Raj[address] [place] [address] Khang Alfaro MD 08/02/2025 Orders Only [facility] Oncology and Hematology - [address] [place] [address] Khang Alfaro MD from Last 3 Months [...] Sign Reading Time Taken Comments Blood Pressure 159/98 08/26/2025 10:18 AM CDT Pulse 90 08/26/2025 10:16 AM CDT Temperature 36.1 C (96.9 F) 08/26/2025 10:16 AM CDT Respiratory Rate 16 08/26/2025 10:16 AM CDT Oxygen Saturation 96% 08/26/2025 10:16 AM CDT Inhaled Oxygen Concentration - - Weight 165 kg (363 lb 12.8 oz) 08/26/2025 10:16 AM CDT Height 177.8 cm (5' 10) 08/27/2023 10:05 AM CDT Body Mass Index 52.2 08/27/2023 10:05 AM CDT Plan of Treatment Upcoming Encounters Date Type Department Care Team (Late st Contact Info) Description 03/03/2026 10:30 AM CDT Office Visit [facility] Oncology and Hematology - Raji [address] [facility] [address] [place] [address] Khang Alfaro MD [address] [facility] [address] [place] [address] Health Maintenance Due Date Last Done Comments Pre-Diabetes and Diabetes Screening 1980 DTAP/TDAP/TD VACCINES (1 - Tdap) 1999 HEPATITIS B VACCINES (1 of 3 - 19+ 3-dose series) 09/24 Traditional Medicare (ACO) Annual Wellness Visit 10/03 HPV VACCINES (1 - 3-dose SCDM series) 2007 INFLUENZA VACCINE (#1) 2025 Procedures Procedure Name Priority Date/Time Associated Diagnosis Comments IMMUNOGLOBULINS IGG IGA IGM Routine 04/2025 1:48 PM RADIOCOMMUNICATIONS TECHNICIAN COMPREHENSIVE METABOLIC PANEL Routine 08/17/2025 3:56 PM CDT CBC WITH AUTODIFFERENTIAL Routine 2024 3:51 PM CDT IMMUNOGLOBULINS IGG IGA IGM Routine 07/2025 3:57 PM CDT from Last 3 Months Results * IMMUNOGLOBULINS IGG IGA IGM (09/29/2025 1:48 PM RADIOCOMMUNICATIONS TECHNICIAN) Only the most recent of2 resultswithin the time period is included. Blood us Khang Alfaro MD CHEMISTRY ORDERABLES Final Resu lt * COMPREHENSIVE METABOLIC PANEL (08/17/2025 3:56 PM CDT) Blood Khang Alfaro MD CHEMISTRY ORDERABLES Final Resu lt * CBC WITH AUTODIFFERENTIAL (08/17/2025 3:51 PM CDT) Blood Khang Alfaro MD HEMATOLOGY ORDERABLES Final Res ult from Last 3 Months Insurance MEDICARE PART A AND B [facility] Care Teams Manager Science Relationship Specialty Start Date End Date Mahamed Milian MD [address] [place] [address] PCP - General Family Practice 07/16/23
--- OUTSIDE RECORDS SUMMARY | 2025-10-03 12:17 | XMS_ITS | Clinical Summary ---
Author Organization 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 Gender Identity Not on file Sexual Orientation [...] Health Maintenance Due Date Last Done Comments Colon Cancer Screening-Colonoscopy 1980 Depression Screening 1980 Hepatitis C Screening 1980 Varicella Vaccines (1 of 2 - 13+ 2-dose series) 1993 Hepatitis B Screening 1998 Regular Well Visit/Exam 18-64 1998 HPV Vaccines (1 - 3-dose SCD M series) 2007 Covid-19 Vaccine (2024-2 6 season) 2025 04/05/2021, 03/15/2021 Influenza Vaccine (#1) 2025 08/24/2021 DTaP/Tdap/Td Vaccine (2 - Td or Tdap) 09/06/2033 09/06/2023 Pneumococcal vaccine <65 Aged Out No longer eligible based on patient's age to complete this topic Insurance MEDICARE [facility] Address: [address] [place] [address] MEDICARE Care Teams Occupational Therapy Program Director Relationship Specialty Start Date End Date Referral, Self PCP - General 02/23/24
--- OUTSIDE RECORDS SUMMARY | 2025-10-03 12:17 | XMS_ITS | Encounter Summary ---
Author Organization [facility] [employer] [facility] Address [address] [place] [address] Care Team Providers Care Ophthalmic Surgeon Name Role Phone Mahamed Milian MD Primary Care Provider [phone] Encounter Details Date Type Department Care Team ([facility] Contact Info) Description 09/30/2025 Orders Only [facility] Oncology and Hematology [facility] [address] [place] [address] Khang Alfaro MD [facility] [employer] [address] [place] [address] Social History Tobacco Use Types Packs/Day Years Used Date Smoking Tobacco: Never Smokeless Tobacco: Never Alcohol Use Standard Drinks/Week Comments Never 0 (1 standard drink = 0.6 oz pur e alcohol) Sex and Gender Information Value Date Recorded Sex Assigned at Not on file Legal Sex Male 2:06 PM CDT Gender Identity Not on file Sexual Orientation Not on file documented as of this encounter Plan of Treatment Upcoming Encounters Date Type Department Care Team (Late st Contact Info) Description 03/03/2026 10:30 AM CDT Office Visit [facility] Oncology [facility] Hematology [facility] [address] [place] [address] Khang Alfaro MD [address] [employer] [address] [place] [address] documented as of this encounter Procedures Procedure Name Priority Date/Time Associated Diagnosis Comments IMMUNOGLOBULINS IGG IGA IGM Routine 09/29/2025 1:48 PM RESTAURANT BARTENDER documented in this encounter Results * IMMUNOGLOBULINS IGG IGA IGM (09/29/2025 1:48 PM RESTAURANT BARTENDER) Blood us Khang Alfaro MD CHEMISTRY ORDERABLES Final Resu lt documented in this encounter Visit Diagnoses Not on filedocumented in this encounter Care Teams Ophthalmic Surgeon Relationship Specialty Start Date End Date Mahamed Milian MD [address] [place] [address] PCP - General Family Practice 07/16/23 documented as of this encounter
[2025-10-03 12:31] LABS: Free T4 Free Thyroxine 0.99 ng/dL (0.78-2.19)
[2025-10-03 12:50] LABS: Prostate Specific Antigen 1.0 ng/mL (< OR = 4.0); Thyroid Stimulating Hormone 2.810 uIU/mL (0.465-4.680)
== END 2025-10-03 11:26 | disposition home or self-care (01) ==
PROVIDERS: PCP Family Medicine; Visit Provider Family Medicine
DX: E03.9 Hypothyroidism, unspecified (principal); E11.9 Type 2 diabetes mellitus without complications; Z12.5 Encounter for screening for malignant neoplasm of prostate
CPT/HCPCS: 36415; 80048; 82043; 84153; 84439; 84443; 85025; G0103

== ENCOUNTER 2025-10-04 10:06 | Outpatient (NON) | payer MEDICARE, BC, MEDICAID, SELFPAY ==
--- OUTSIDE RECORDS SUMMARY | 2025-10-04 10:39 | XMS_ITS | Clinical Summary ---
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
--- OUTSIDE RECORDS SUMMARY | 2025-10-04 10:39 | XMS_ITS | Clinical Summary ---
Author Organization [facility] Address [address] [place] [address] Care Team Providers Care Supervisor Of Operations Name Role Phone Mahamed Milian MD Primary Care Provider [phone] Allergies No known active allergies Medications lamoTRIgine [...] Department Care Team Description 09/30/2025 Orders Only [facility] Oncology and Hematology - Raji [address] [place] [address] Khang Alfaro MD 09/27/2025 External Device Data STL ABSTRACTION Provider, Abstract 09/20/2025 External Device Data STL ABSTRACTION Provider, Abstract 09/13/2025 External Device Data STL ABSTRACTION Provider, Abstract 08/26/2025 10:30 AM CDT Office Visit [facility] Oncology and Hematology - Raji [address] [place] [address] Khang Alfaro MD Immune deficiency disorder (Primary Dx) 08/17/2025 Orders Only [facility] Oncology and Hematology - [address] [place] [address] Khang Alfaro MD 08/02/2025 Orders Only [facility] Oncology and Hematology - Raj[address] [place] [address] Khang Alfaro MD from Last 3 Months [...] Description 03/03/2026 10:30 AM CDT Office Visit [facility] Oncology and Hematology - Raji [address] [facility] [address] [place] [address] Khang Alfaro MD [address] [facility] [address] [place] [address] Health Maintenance Due Date Last Done Comments Pre-Diabetes and Diabetes Screening 1980 DTAP/TDAP/TD VACCINES (1 - Tdap) 1999 HEPATITIS B VACCINES (1 of 3 - 19+ 3-dose series) 09/24 HPV VACCINES (1 - 3-dose SCDM series) 2007 INFLUENZA VACCINE (#1) 2025 COLORECTAL SCREENING 2025 Colorectal Cancer Screening 2025 FIT-DNA Q 3 years 2025 FIT/FOBT Q 1 year 2025 Flex Sig/CT Colonography Q 5 years 2025 Procedures Procedure Name Priority Date/Time Associated Diagnosis Comments IMMUNOGLOBULINS IGG IGA IGM Routine 04/2025 1:48 PM GAS AND OIL CHECKER COMPREHENSIVE METABOLIC PANEL Routine 08/17/2025 3:56 PM CDT CBC WITH AUTODIFFERENTIAL Routine 2024 3:51 PM CDT IMMUNOGLOBULINS IGG IGA IGM Routine 07/2025 3:57 PM CDT from Last 3 Months Results * IMMUNOGLOBULINS IGG IGA IGM (09/29/2025 1:48 PM GAS AND OIL CHECKER) Only the most recent of2 resultswithin the [...] Months Insurance MEDICARE PART A AND B [facility] Care Teams Supervisor Of Operations Relationship Specialty Start Date End Date Mahamed Milian MD [address] [place] [address] PCP - General Family Practice 07/16/23
--- OUTSIDE RECORDS SUMMARY | 2025-10-04 10:39 | XMS_ITS | Encounter Summary ---
Author Organization [facility] [employer] [facility] Address [address] [place] [address] Care Team Providers Care Fire Supervisor Name Role Phone Mahamed Milian MD Primary Care Provider [phone] Encounter Details Date Type Department Care Team ([facility] Contact Info) Description 09/30/2025 Orders Only [facility] Oncology and Hematology [facility] [address] [place] [address] Khang Alfaro MD [facility] [employer] [address] [place] [address] Social History Tobacco Use Types Packs/Day [...] Description 03/03/2026 10:30 AM CDT Office Visit [facility] Oncology [facility] Hematology [facility] [address] [place] [address] Khang Alfaro MD [address] [place] [address] documented as of this encounter Procedures Procedure Name Priority Date/Time Associated Diagnosis Comments IMMUNOGLOBULINS IGG IGA IGM Routine 09/29/2025 1:48 PM TIRE ADJUSTER documented in this encounter Results * IMMUNOGLOBULINS IGG IGA IGM (09/29/2025 1:48 PM TIRE ADJUSTER) Blood us Khang Alfaro MD CHEMISTRY ORDERABLES Final Resu lt documented in this encounter Visit Diagnoses Not on filedocumented in this encounter Care Teams Fire Supervisor Relationship Specialty Start Date End Date Mahamed Milian MD [address] [place] [address] PCP - General Family Practice 07/16/23 documented as of this encounter
[2025-10-04 10:52] LABS: MALB Creatinine Ratio 6.6 mg/g (0-30)
== END 2025-10-04 10:07 | disposition home or self-care (01) ==
PROVIDERS: PCP Family Medicine; Visit Provider Family Medicine
DX: E11.9 Type 2 diabetes mellitus without complications (principal)
CPT/HCPCS: 82043

== ENCOUNTER 2025-11-09 14:18 | Outpatient (CLI) | payer MEDICARE, BC, MEDICAID, SELFPAY ==
--- OUTSIDE RECORDS SUMMARY | 2025-11-09 17:10 | XMS_ITS | Clinical Summary ---
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
--- OUTSIDE RECORDS SUMMARY | 2025-11-09 17:11 | XMS_ITS ---
Author Name Alysa Quintanilla Address Unknown Organization [facility] [address] Care Team Providers Care Certified Hyperbaric Technician Name Role Phone Unavailable Primary Care Physician Unavailab le History Of Present Illness No Data Allergies, Adverse Reactions, Alerts Substance RxNorm Reaction(s) Severity Status Start Da te metformin Diarrhea unspecified active Medications Medication Generic Name RxNorm Strength Strength Unit Route Dose Dose Form Frequency Date Started Date Ended Status Indication Sig albuterol sulfate 0024194 90 mcg/actua tion Inhala tion HFA Aeros ol Inhal er active Asmanex Twisthaler 047335 220 mcg/ actuation (60) Inhala tion Aeros ol Powde r, Breat h Activ ated active olopatadine 3597419 0.6 % Intran emerita spray , non-a eroso l suspend ed triamcinolo ne acetonide 7508932 55 mcg Intran emerita Aeros ol, [place] active bupropion HCl 375613 200 mg Oral table t, susta ined- relea se 12 hr active buspirone 558581 7.5 mg Oral table t active diazepam 654694 10 mg Oral table t active glimepiride 691910 1 mg Oral tabl e t active Jardiance 7815443 25 mg Oral table t active lamotrigine 19840101 150 mg Oral tabl e t active levothyroxi ne 823179 25 mcg Oral table t active minocycline minocycl ine 629524 100 mg Oral capsu le 11/08/20 25 active One caps ule by mojesus h kike e sal y for 2 week s prazosin 895891 5 mg Oral capsu le active rosuvastati n 833117 20 mg Oral table t active Valtrex valacycl ovir 142711 1 gram Oral table t 10/27/20 25 active Take two tabl ets oral ly for one day at onse t of symp toms of cold sore s venlafaxine 751179 150 mg Oral Caps u le, Exten ded Relea se 24 hr active ziprasidone HCl 679284 80 mg Oral capsu le active ziprasidone HCl ziprasid one HCl Oral active Ozempic 0551532 2 mg/dose (8 mg/3 mL) Subcut aneous Pen Injec tor active Skyrizi 1588930 150 mg/mL Subcut aneous Pen Injec tor active Problems Problem Code Type Status Date of Diagnosis Da te of Resolution Herpesviral vesicular dermatitis (disorder) 182477892(SN OMED) Diagnosis active 10/27/2025 Psoriasis vulgaris (disorder) 026393499(SN OMED) Diagnosis active 10/27/2025 Hypertrophic condition of skin (disorder) 81318765(SNO MED) Diagnosis active 10/27/2025 Melanocytic nevus of trunk (disorder) 671677291(SN OMED) Diagnosis active 10/27/2025 Anxiety (finding) 08657607(SNO MED) Problem active Diabetes mellitus (disorder) 62251016(SNO MED) Problem active History of clinical finding in subject (situation) 613412381(SN OMED) Problem active Psoriasis (disorder) 4243087(SNOM ED) Problem active Psoriasis vulgaris (disorder) 817896817(SN OMED) Diagnosis active 11/08/2025 Localized infection of skin AND/OR subcutaneous tissue (disorder) 009057162(SN OMED) Diagnosis active 11/08/2025 Results No data Encounters Service provided at [facility] [address], [address] [place] [address]. Office phone number is [phone]. Office fax number is [phone]. Encounter Diagnosis Location Date / Time Type Disc harge Status Psoriasis (L40.0)Skin Infection, NOS (L08.9) [facility] [address] 11/08/2025 13:47:49 [facility] Reason For Referral No data Procedures Procedure Date Cryotherapy of skin lesion with liquid n itrogen (procedure) 10/27/2025 12:00 am [facility] Documentation of past medical history (p rocedure) Review Of Systems No Data Assessment 1.PsoriasisOrder Tests2.Skin Infection, NOSPrescription: minocycline 100 mg capsule PO Plan of Care Code Detail Instructions [id number] QUANTIFERON(R)-TB GOLD PLUS, 1 T UBE November 08, 2025 146826 minocycline 100 mg capsule One c apsule by mouth twice daily for 2 weeks 687683 Valtrex 1 gram tablet Take two t ablets orally for one day at onset of symptoms of cold sores Instructions No Data Social History Code Activity Start Date End Date [id number] (SNOMED) Never smoker Sex Male Sexual orientation Don't Know Gender identity Unspecified Vital Signs No data Insurances Coverage Status Coverage Type Relationship to Subscriber Member Identifier Subscriber Identifier Group Identifier Payer Identifier Inactive Self Active C Self [id number] Active B Self [id number]
--- OUTSIDE RECORDS SUMMARY | 2025-11-09 17:11 | XMS_ITS | Clinical Summary ---
Author Organization [facility] Address [address] [place] [address] Care Team Providers Care Edge Grinder Machine Name Role Phone Mahamed Milian MD Primary Care Provider [phone] Allergies No known active allergies Medications lamoTRIgine [...] mg by subcutaneous injection one time only. 4 Active Active Problems No known active problems Encounters Date Type Department Care Team Description 10/25/2025 External Device Data STL ABSTRACTION Provider, Abstract 09/30/2025 Orders Only [facility] Oncology and Hematology [facility] [address] [place] [address] Khang Alfaro MD 09/27/2025 External Device Data STL ABSTRACTION Provider, Abstract 09/20/2025 External Device Data STL ABSTRACTION Provider, Abstract 09/13/2025 External Device Data STL ABSTRACTION Provider, Abstract 08/26/2025 10:30 AM CDT Office Visit [facility] Oncology and Hematology [facility] [address] [place] [address] Khang Alfaro MD Immune deficiency disorder (Primary Dx) 08/17/2025 Orders Only [facility] Oncology and Hematology [facility] [address] [place] [address] Khang Alfaro MD from Last 3 Months [...] Description 03/03/2026 10:30 AM CDT Office Visit [facility] Oncology and Hematology - Raji [address] [facility] [address] [place] [address] Khang Alfaro MD [address] [facility] [address] [place] [address] Health Maintenance Due Date Last Done Comments Pre-Diabetes and Diabetes Screening 1980 DTAP/TDAP/TD VACCINES (1 - Tdap) 1999 HEPATITIS B VACCINES (1 of 3 - 19+ 3-dose series) 09/24 INFLUENZA VACCINE (#1) 2025 COLORECTAL SCREENING 2025 Colorectal Cancer Screening 2025 FIT-DNA Q 3 years 2025 FIT/FOBT Q 1 year 2025 Flex Sig/CT Colonography Q 5 years 2025 HPV VACCINES (No Doses Required) Completed Procedures Procedure Name Priority Date/Time Associated Diagnosis Comments IMMUNOGLOBULINS IGG IGA IGM Routine 04/2025 1:48 PM ESCORT VEHICLE DRIVER COMPREHENSIVE METABOLIC PANEL Routine 08/17/2025 3:56 PM CDT CBC WITH AUTODIFFERENTIAL Routine 2024 3:51 PM CDT from Last 3 Months Results * IMMUNOGLOBULINS IGG IGA IGM (09/29/2025 1:48 PM ESCORT VEHICLE DRIVER) Blood us Khang Alfaro MD CHEMISTRY ORDERABLES Final Resu lt * COMPREHENSIVE METABOLIC PANEL (08/17/2025 3:56 PM CDT) Blood us Khang Alfaro MD CHEMISTRY ORDERABLES Final Resu lt * CBC WITH AUTODIFFERENTIAL (08/17/2025 3:51 PM CDT) Blood Khang Alfaro MD HEMATOLOGY ORDERABLES Final Res ult from Last 3 Months Insurance MEDICARE PART A AND B [facility] [employer] Care Teams Edge Grinder Machine Relationship Specialty Start Date End Date Mahamed Milian MD [address] [place] [address] PCP - General Family Practice 07/16/23
== END 2025-11-09 14:19 | disposition home or self-care (01) ==
LOC: ANHLAB 14:22
PROVIDERS: PCP Family Medicine; Visit Provider Nurse Practitioner Family
DX: L40.0 Psoriasis vulgaris (principal)
CPT/HCPCS: 86480